=== PATIENT | female | born 1985 | race Caucasian/White ===

== ENCOUNTER → 2017-01-09 | Emergency (ER) | payer SELFPAY | END | disposition disaster alternative care site (69) | LOC: GAMB 01:01 | DX: F10.129 Alcohol abuse with intoxication, unspecified (principal); G40.909 Epilepsy, unspecified, not intractable, without status epilepticus; S00.83XA Contusion of other part of head, initial encounter; Z86.69 Personal history of other diseases of the nervous system and sense organs; W18.09XA Striking against other object with subsequent fall, initial encounter ==